=== PATIENT | female | born 1975 | race Two or more races ===

== ENCOUNTER 2025-03-05 19:14 | Emergency (ER) | payer OTHER ==
[~2025-03-05] VITALS: Ht 142.2 cm; Wt 38.6 kg
[2025-03-05] MEDS ORDERED: NIFEDIPINE 10 MG CAPSULE PO ONE (20:13)
[2025-03-05] MEDS ORDERED: FAMOtidine 10 MG/ML (4ML VIAL) IV PUSH ONE (20:45)
[2025-03-05] MEDS ORDERED: BUTALB/ACETAMINOPHEN/CAFFEINE 1 TAB TABLET PO ONE ×2 (20:45→21:28)
[2025-03-05] MEDS ORDERED: ONDANSETRON HCL 2 MG/ML VIAL IV ONE (20:45)
[2025-03-05] MEDS ORDERED: ONDANSETRON HCL 2 MG/ML VIAL ONE (21:29)
[2025-03-05] MEDS ORDERED: FAMOTIDINE/PF 20 MG/2 ML VIAL ONE (21:29)
[2025-03-05] MEDS ORDERED: TRAMADOL HCL 50 MG TABLET PO ONE (21:45)
[2025-03-05 22:15] LABS: HEMATOCRIT 42.8 % (36.0-45.00); HEMOGLOBIN 14.6 g/dL (12.0-15.00); MEAN CELL VOLUME 88.3 fL (80.00-100.00); PLATELET COUNT 319 K/uL (150-450); RED BLOOD COUNT 4.85 M/uL (4.00-6.00)
[2025-03-05] MEDS ORDERED: BUTALBIT-ACETA1 EACH PO (22:44)
[2025-03-05] MEDS ORDERED: COZAAR25 MG PO (22:44)
== END 2025-03-05 23:40 | disposition home or self-care (01) ==
LOC: ER 19:14
PROVIDERS: General Practice
DX: I10 Essential (primary) hypertension (principal); J32.0 Chronic maxillary sinusitis; Q87.19 Other congenital malformation syndromes predominantly associated with short stature